=== PATIENT | male | born 2000 | race Caucasian/White ===

== ENCOUNTER 2023-10-20 09:49 | Outpatient (AMB) | payer OTHER, SELFPAY ==
[2023-10-20 10:13] VITALS: BP 122/66; PULSE 102; RESP 13; TEMP 36.4; O2SAT 99; BMI 25.3
--- NOTE | 2023-10-20 10:13 | AM.OFFWIN_ITS ---
Intake Vital Signs 10/20/23 10:13 Height 6 ft Weight 186 lb 8 oz BMI 25.3 BP 122/66 Blood Pressure Location Rt brachial Position Sitting Respiration 13 Pulse 102 H Pulse Source Pulse Oximeter Temp 97.6 F Pulse Oximetry (%) 99 Oxygen Delivery Method Room Air Intake Visit Reasons: Tick bite Intake Note: Patient states hands are swollen and he has joint pain that is so bad its hard to go up the stairs, tick bite was 1-2 weeks ago. Patient Tobacco Use Status: Never used Tobacco Real Estate Transaction Manager Required: No Accompanied by: Self / Same As Patient Allergies No Known Allergies Allergy (Verified 10/20/23 10:19) Do you need a note to return to daycare/school/sports/work: No HPI HPI Comments History of Present Illness Details Here today with complaints joint pain, swelling, low-grade temperature that started about 2 days ago. Reports he was in his usual state of health. Three weeks ago he was bit by a tick on his left lower back. He was unsure how long it was attached. He believes it was less than 24 hours. The tick was not engorged. He was able to remove on his own. He did not seek care for this initial bite. Two days ago upon waking developed aching of all of his joints and swelling of his hands. Painful when climbing stairs. Denies any rash. Denies any cough, sore throat, runny nose. He does not currently have a primary care provider. local pharm - [facility] Social History Patient Tobacco Use Status: Never used Tobacco Review of Systems Const All systems reviewed & are unremarkable except as noted in HPI and below Physical Exam Vital Signs: Last Vital Signs Temp 97.6 F 10/20/23 10:13 Pulse 102 H 10/20/23 10:13 Resp 13 10/20/23 10:13 BP 122/66 10/20/23 10:13 Pulse Ox 99 10/20/23 10:13 Oxygen Delivery Method Room Air 10/20/23 10:13 BMI result Body Mass Index 25.3 Const Other: Awake alert no acute distress No rash No redness, warmth, edema to joints Patient reports that his hands are swollen for him and shows me his tight wedding ring on his left ring finger. Assessment & Plan Assessment & Plan (1) Tick bite: Code(s): W57.XXXA - Bitten or stung by nonvenomous insect and other nonvenomous arthropods, initial encounter Qualifiers: Encounter type: initial encounter Site of tick bite: thoracic wall Front or back of thoracic wall: back Thoracic wall location detail: left Qualified Code(s): S20.462A - Insect bite (nonvenomous) of left back wall of thorax, initial encounter; W57.XXXA - Bitten or stung by nonvenomous insect and other nonvenomous arthropods, initial encounter Plan: . (2) Joint swelling: Code(s): M25.40 - Effusion, unspecified joint (3) Arthralgia: Code(s): M25.50 - Pain in unspecified joint Qualifiers: Joint pain location: unspecified Qualified Code(s): M25.50 - Pain in unspecified joint Plan: . Plan Presents today after a tick bite 3 weeks ago with complaints of painful joints, swelling of joints, low-grade fever. The plan will be to check his labs today. Did advise that he needs to follow up with a primary care provider. I have asked him to stop at the front office assistant and see if we can accommodate him. If not he was advised to come back to the walk-in to discuss his lab results. This should happen about 1-2 weeks. If there is anything critical on his labs he will be called. I verified the phone number on file. Orders: Orders Lyme IgG/IgM w/reflex to WB Today M25.40 - Effusion, unspecified joint, M25.50 - Pain in unspecified joint, W57.XXXA - Bitten or stung by nonvenomous insect and other nonvenomous arthropods, initial encounter CRP High Sensitivity Today M25.40 - Effusion, unspecified joint, M25.50 - Pain in unspecified joint, W57.XXXA - Bitten or stung by nonvenomous insect and other nonvenomous arthropods, initial encounter Complete Blood Count Man Dif Today M25.40 - Effusion, unspecified joint, M25.50 - Pain in unspecified joint, W57.XXXA - Bitten or stung by nonvenomous insect and other nonvenomous arthropods, initial encounter Erythrocyte Sedimentation Rate Today M25.40 - Effusion, unspecified joint, M25.50 - Pain in unspecified joint, W57.XXXA - Bitten or stung by nonvenomous insect and other nonvenomous arthropods, initial encounter Patient Instructions: Presents today after a tick bite 3 weeks ago with complaints of painful joints, swelling of joints, low-grade fever. The plan will be to check his labs today. Did advise that he needs to follow up with a primary care provider. I have asked him to stop at the front office assistant and see if we can accommodate him. If not he was advised to come back to the walk-in to discuss his lab results. This should happen about 1-2 weeks. If there is anything critical on his labs he will be called. I verified the phone number on file. This note is constructed using voice recognition software. While every effort has been made to ensure accuracy in sheet rock applier, still errors may have been included Sometimes, these errors may affect the content or meaning of the given sentence . Total time spent caring for the patient today was 40 minutes. This includes time spent before the visit reviewing the chart, time spent during the visit, and time spent after the visit on documentation Coding Level of Care Code Est Pt Level 4 (18447) Diagnoses Tick bite of left back wall of thorax, initial encounter S20.462A; W57.XXXA Encounter type: initial encounter Site of tick bite: thoracic wall Front or back of thoracic wall: back Thoracic wall location detail: left Joint swelling M25.40 Arthralgia, unspecified joint M25.50 Joint pain location: unspecified
== END 2023-10-20 10:46 | disposition home or self-care (01) ==
PROVIDERS: Visit Provider Nurse Practitioner Family
DX: S20.462A Insect bite (nonvenomous) of left back wall of thorax, initial encounter (principal); W57.XXXA Bitten or stung by nonvenomous insect and other nonvenomous arthropods, initial encounter; M25.40 Effusion, unspecified joint; M25.50 Pain in unspecified joint
CPT/HCPCS: 99214

== ENCOUNTER 2023-10-20 10:52 | Outpatient (REF) | payer OTHER, SELFPAY ==
[2023-10-20 15:12] LABS: Baso%MD 0.5 %; Eos%MD 0.7 %; Hematocrit 44.7 % (42.0-52.0); Hemoglobin 15.6 g/dl (14.0-18.0); IG%MD 3.6 %; Mean Corpuscular HGB Conc 34.9 g/dl (31.0-36.0); Mean Corpuscular Hemoglobin 28.6 pg (27.0-33.0); Mean Platelet Volume 10.8 fL (9.4-12.4); Mono%MD 8.6 %; Neut%MD 73.6 %; Platelet Count 184 X10*3/uL (160-400); Red Blood Count 5.45 X10*6/uL (4.60-5.80); Red Cell Distribution Width 12.1 % (11.0-16.0); White Blood Count 5.9 X10*3/uL (4.8-10.8)
[2023-10-20 16:39] LABS: Erythrocyte Sedimentation Rate 6 MM/HR (0-15)
[2023-10-20 17:23] LABS: Atypical Lymph Absolute Manual 0.2 x10*3/uL; Atypical Lymphs Percent Manual 3 % (0-6); Band Neutrophils Percent 1 % (3-5); Lymphocytes Absolute Manual 0.8 X10*3/uL (1.2-4.9); Lymphocytes Percent Manual 13 % (20-40); Metamyelocytes Absolute 0.1 X10*3/uL; Metamyelocytes Percent 1 %; Monocytes Absolute Manual 0.2 X10*3/uL (0.1-1.2); Monocytes Percent Manual 4 % (2-11); Neutrophils Absolute Manual 4.7 X10*3/uL (2.0-8.3); Neutrophils Percent Manual 78 % (45-73)
[2023-10-20 17:24] LABS: Platelet Estimate NORMAL (NORMAL); Platelet Morphology Comment NORMAL; RBC Morphology NORMAL
[2023-10-21 14:44] LABS: CRP High Sensitivity 6.9 mg/L
[2023-10-21 18:03] LABS: Lyme Abs Screen <0.90 index
== END 2023-10-20 10:53 | disposition home or self-care (01) ==
LOC: HO.WFDLDS 10:52
PROVIDERS: Visit Provider Nurse Practitioner Family
DX: M25.40 Effusion, unspecified joint (principal); M25.50 Pain in unspecified joint; T14.8XXA Other injury of unspecified body region, initial encounter; W57.XXXA Bitten or stung by nonvenomous insect and other nonvenomous arthropods, initial encounter; Y93.9 Activity, unspecified; Y92.9 Unspecified place or not applicable; Y99.9 Unspecified external cause status
CPT/HCPCS: 36415; 85007; 85027; 85652; 86141; 86617; 86618

== ENCOUNTER 2023-11-01 07:54 | Outpatient (AMB) | payer OTHER, SELFPAY ==
--- NOTE | 2023-11-01 08:00 | MHC.OFFWIV ---
Intake Vital Signs 11/01/23 08:02 Height 6 ft Weight 188 lb BMI 25.5 BP 122/66 Blood Pressure Location Lt brachial Position Sitting Pulse 78 Pulse Source Pulse Oximeter Pulse Oximetry (%) 98 Oxygen Delivery Method Room Air Intake Visit Reasons: 2 weeks fu labs and tick bite annual Patient Tobacco Use Status: Never used Tobacco Allergies No Known Allergies Allergy (Verified 11/01/23 08:05) Medication List - Last Reconciled 11/01/23 by MARIA VICTORIA Mckeon No Known Home Meds HPI HPI Comments History of Present Illness Details Here today for a 2 week follow up to discuss the labs that were done in the setting of joint swelling, low grade fever that developed shortly after a tick bite. The labs below were reviewed with him today. Labs from 10/22/2023 showed neutrophils elevated 78,. Neutrophils low at 1, lymphocytes low at 13, 3% atypical lymphocytes, 4% monocytes, low lymphocytes 0.8, normal platelets, elevated CRP 6.9, negative Lyme disease screen He reports that he is Feeling back to baseline w/o intervention All of his symptoms resolved 3 days after last office visit Denies family hx assoc w/ Autoimmune disorders Denies surgery Family hx negative Denies mood disorders Plan Discuss the lab testing associated with Lyme disease. Often times there is a delay in positive lab findings related to Lyme. Other differentials could certainly include autoimmune disorder such as RA or lupus. Discuss repeating labs are ordering future labs versus watch and wait. He wishes to watch and wait as he feels quite well. He is aware that he should return to the office should he develop any joint pain, redness, swelling or rash. PFSH Social History Patient Tobacco Use Status: Never used Tobacco Review of Systems Const All systems reviewed & are unremarkable except as noted in HPI and below Physical Exam Const Other: Awake alert NAD Sclera and conjunctiva clear bilat Nares patent, turbinates within normal limits, no sinus tenderness with palpation bilat TM intact and clear bilat MMM, pharynx WNL RRR LS CTAB No joint swelling, erythema Skin intact without rash Assessment & Plan Assessment & Plan (1) Arthralgia: Code(s): M25.50 - Pain in unspecified joint Qualifiers: Joint pain location: unspecified Qualified Code(s): M25.50 - Pain in unspecified joint Plan: . (2) Tick bite: Code(s): W57.XXXA - Bitten or stung by nonvenomous insect and other nonvenomous arthropods, initial encounter Qualifiers: Encounter type: initial encounter Site of tick bite: thoracic wall Front or back of thoracic wall: back Thoracic wall location detail: left Qualified Code(s): S20.462A - Insect bite (nonvenomous) of left back wall of thorax, initial encounter; W57.XXXA - Bitten or stung by nonvenomous insect and other nonvenomous arthropods, initial encounter Plan: . (3) Joint swelling: Code(s): M25.40 - Effusion, unspecified joint Plan: . Plan This note is constructed using voice recognition software. While every effort has been made to ensure accuracy in manager strategic sourcing, still errors may have been included Sometimes, these errors may affect the content or meaning of the given sentence . Total time spent caring for the patient today was 30 minutes. This includes time spent before the visit reviewing the chart, time spent during the visit, and time spent after the visit on documentation Patient Instructions: Plan Discuss the lab testing associated with Lyme disease. Often times there is a delay in positive lab findings related to Lyme. Other differentials could certainly include autoimmune disorder such as RA or lupus. Discuss repeating labs are ordering future labs versus watch and wait. He wishes to watch and wait as he feels quite well. He is aware that he should return to the office should he develop any joint pain, redness, swelling or rash. Coding Level of Care Code Est Pt Level 4 (48189) Diagnoses Arthralgia, unspecified joint M25.50 Joint pain location: unspecified Tick bite of left back wall of thorax, initial encounter S20.462A; W57.XXXA Encounter type: initial encounter Site of tick bite: thoracic wall Front or back of thoracic wall: back Thoracic wall location detail: left Joint swelling M25.40
[2023-11-01 08:02] VITALS: BP 122/66; PULSE 78; O2SAT 98; BMI 25.5
== END 2023-11-01 08:15 | disposition home or self-care (01) ==
PROVIDERS: Visit Provider Nurse Practitioner Family
DX: M25.50 Pain in unspecified joint (principal); S20.462A Insect bite (nonvenomous) of left back wall of thorax, initial encounter; W57.XXXA Bitten or stung by nonvenomous insect and other nonvenomous arthropods, initial encounter; M25.40 Effusion, unspecified joint
CPT/HCPCS: 99214